=== PATIENT | male | born 1970 | race Two or more races ===

== ENCOUNTER 2019-03-02 15:55 | Emergency (ER) | payer SELFPAY ==
--- NOTE | 2019-03-02 17:01 | EDM.PDOC ---
ED HPI GENERAL MEDICAL PROBLEM - General Chief Complaint: Abdominal Pain Stated Complaint: ABDOMINAL PAIN Time Seen by Provider: 03/02/19 16:36 Source of Information: Reports: Patient, Family History Limitations: Reports: No Limitations - History of Present Illness INITIAL COMMENTS - FREE TEXT/NARRATIVE: patient is 48-year-old male who presents with complaints of bilateral lower abdominal pain. He states he's had this pain intermittently over the last year however symptoms are worse today. He states the pain occurs frequently after he eats and he does have episodes of diarrhea and constipation. He states he did have some diarrhea today. Denies any nausea or vomiting. He also states that he does have intermittent swelling in his testicles. He first noticed this symptom about 6 months ago. States the testicles are not swollen at this time. He denies any history of GI problems. He is has his appendix and gallbladder. He refused IV insertion during the triage process and is apprehensive to lab work. Abdominal Pain Score (Numeric/FACES): 6 - Related Data Allergies Allergy/AdvReac Type Severity Reaction Status Date / Time No Known Allergies Allergy Verified 03/02/19 16:32 Home Meds: Home Meds Dicyclomine [Bentyl] 20 mg PO Q6H PRN #10 tablet 03/02/19 [Rx] ED ROS GENERAL - Review of Systems Review Of Systems: See Below Constitutional: Reports: No Symptoms. Denies: Fever, Chills, Decreased Appetite HEENT: Reports: No Symptoms Respiratory: Reports: No Symptoms Cardiovascular: Reports: No Symptoms Endocrine: Reports: No Symptoms GI/Abdominal: Reports: Abdominal Pain, Constipation, Diarrhea, Nausea. Denies: Black Stool, Bloody Stool, Vomiting : Reports: No Symptoms. Denies: Dysuria, Flank Pain, Frequency Musculoskeletal: Reports: No Symptoms Skin: Reports: No Symptoms Neurological: Reports: No Symptoms Psychiatric: Reports: No Symptoms Hematologic/Lymphatic: Reports: No Symptoms Immunologic: Reports: No Symptoms ED EXAM, GI/ABD - Physical Exam Exam: See Below Exam Limited By: No Limitations General Appearance: Alert, WD/WN, Mild Distress Head: Atraumatic, Normocephalic Respiratory/Chest: No Respiratory Distress, Lungs Clear, Normal Breath Sounds, No Accessory Muscle Use, Chest Non-Tender Cardiovascular: Normal Peripheral Pulses, Regular Rate, Rhythm, No Edema, No Murmur GI/Abdominal Exam: Normal Bowel Sounds, Soft, Tender (generalized throughout. Worse to bilateral sides of the umbilicus.) (Male) Exam: No Hernia, Normal Inspection. No: Scrotal Swelling, Scrotum Tenderness (L), Scrotum Tenderness (R) Neurological: Alert, Oriented, Normal Cognition Psychiatric: Normal Affect, Normal Mood Skin Exam: Warm, Dry, Intact, Normal Color, No Rash Lymphatic: No Adenopathy Course - Vital Signs Last Recorded V/S: Last Vital Signs Temp 98.3 F 03/02/19 16:33 Pulse 87 03/02/19 16:33 Resp 18 03/02/19 16:33 BP 155/95 H 03/02/19 16:33 Pulse Ox 98 03/02/19 16:33 - Orders/Labs/Meds Orders: Active Orders 24 hr Category Date Time Status Abdomen 2V AP Flat Upright [CR] Stat Exams 03/02/19 16:53 Taken Dicyclomine [Bentyl] Med 03/02/19 18:25 Once 20 mg PO ONETIME ONE Medication Orders Dicyclomine HCl (Bentyl) 20 mg PO ONETIME ONE Stop: 03/02/19 18:26 Labs: Laboratory Tests 03/02/19 Range/Units 17:15 Urine Color Yellow (Yellow) Urine Appearance Clear (Clear) Urine pH 7.0 (5.0-8.0) Ur Specific [place] 1.025 (1.005-1.030) Urine Protein Negative (Negative) Urine Glucose (UA) Negative (Negative) Urine Ketones Trace H (Negative) Urine Occult Blood Negative (Negative) Urine Nitrite Negative (Negative) Urine Bilirubin Negative (Negative) Urine Urobilinogen 1.0 (0.2-1.0) Ur Leukocyte Esterase Negative (Negative) Urine RBC 0-5 (0-5) /hpf Urine WBC 0-5 (0-5) /hpf Ur Squamous Epith Cells Not seen (0-5) /hpf Urine Bacteria Few (FEW) /hpf Urine Mucus Few (FEW) /hpf Meds: Medications Generic Name Dose Route Start Last Admin Trade Name Freq PRN Reason Stop Dose Admin Dicyclomine HCl 20 mg 03/02/19 18:25 Bentyl PO 03/02/19 18:26 ONETIME ONE - Re-Assessments/Exams Free Text/Narrative Re-Assessment/Exam: Patient is a 48-year-old male who presents with complaints of bilateral lower abdominal pain. He states this has been occurring off and on for the last year after eating. He states that 6 months ago he noticed that his does have intermittent swelling in his scrotum. He states he does not feel that his scrotum is swollen at this time. Patient refused IV insertion and is apprehensive to having lab work done. On assessment he does have generalized tenderness throughout the abdomen. It seems to be worse directly lateral to the umbilicus on the bilateral sides. His scrotum is does not appear to be swollen at this time. There was no tenderness on exam. I will start with that abdomen flat and upright x-ray as well as a urinalysis. There are no findings on either of these exams, we will move onto blood work if the patient allows. 03/02/19 18:25 Patient's x-ray of his abdomen does show a significant amount of stool throughout his colon. Urinalysis is negative for any infection. I did discuss these findings with the patient and his . It is very possible that this stool is was causing his pain and that he has had issues with chronic constipation over the last year. I do feel that there may be an IBS component to this also. I did discuss that unfortunately IBS is a diagnosis of exclusion so he would have to have colonoscopy done to rule out other disease processes. I do not feel an abdomen CT is appropriate at this time as this has been an ongoing issue of the last year, however, I did offer this if they would like further testing done at this time. They would like to attempt of colon cleanse with magnesium citrate to see if that improves his symptoms. I did discuss that if he does not have relief or if any symptoms worsen he should return to the emergency department. Patient is from [place] so he may also seek care there as needed if he is no longer in the [facility]. I did order Bentyl 20 mg to be given now. 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 They would like to just buy the magnesium citrate in the pharmacy as opposed to get it from here. Discharge instructions as noted. Departure - Departure Time of Disposition: 18:30 Disposition: Home, Self-Care 01 Condition: Fair Clinical Impression: Abdominal pain Qualifiers: Abdominal location: generalized Qualified Code(s): R10.84 - Generalized abdominal pain - Discharge Information *PRESCRIPTION DRUG MONITORING PROGRAM REVIEWED*: No *COPY OF PRESCRIPTION DRUG MONITORING REPORT IN PATIENT [place]: No Prescriptions: Dicyclomine [Bentyl] 20 mg PO Q6H PRN #10 tablet PRN Reason: abdominal cramping Referrals: PCP,None [Primary Care Provider] - Forms: ED Department Discharge Additional Instructions: You were seen in the emergency department nick with complaints of abdominal pain that she had intermittently over the last year. An x-ray of her abdomen did show significant amount of stool present in the colon. As we discussed, your pain and may likely be related to constipation. He did receive Bentyl in the emergency department for abdominal cramping. A prescription for this has also been sent to an [place] pharmacy in [facility]. 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 You may drink the entire bottle at one time or you may choose to drink half now and then wait a few hours to see if you have results. After this we do recommend that she take a daily stool softener to stay regular. I do recommend that you establish care with a primary care provider as I feel there may be a component of IBS to your symptoms. This would however require a colonoscopy to be done to rule out other disease processes. If he should fail to have relief from the bowel cleanse or if you experience any new or worsening symptoms please do not hesitate return to the emergency department. Sepsis Event Note - Evaluation Sepsis Screening Result: No Definite Risk - Focused Exam Vital Signs: Vital Signs Temp Pulse Resp BP Pulse Ox 03/02/19 16:33 98.3 F 87 18 155/95 H 98 Date Exam was Performed: 03/02/19 Time Exam was Performed: 18:25 - My Orders Last 24 Hours: My Active Orders 03/02/19 16:53 Abdomen 2V AP Flat Upright [CR] Stat 03/02/19 18:25 Dicyclomine [Bentyl] 20 mg PO ONETIME ONE - Assessment/Plan Last 24 Hours: My Active Orders 03/02/19 16:53 Abdomen 2V AP Flat Upright [CR] Stat 03/02/19 18:25 Dicyclomine [Bentyl] 20 mg PO ONETIME ONE
[2019-03-02] MEDS ORDERED: Dicyclomine 10 MG Cap PO ONE (18:25)
--- NOTE | 2019-03-04 10:50 | CR ---
Abdomen: Supine and upright views of the abdomen were obtained. Comparison: No prior abdominal x-ray. Slight deformity is noted within the right iliac wing which is well corticated and is felt to be old. Joint space narrowing is noted within the left hip. Calcifications are identified within the left pelvis which is believed to represent phleboliths. Bowel gas pattern is normal. No free air is identified. Impression: 1. Findings as noted above believed to be nonacute. Diagnostic code #2 This report was dictated in [place] Standard Time
== END 2019-03-02 18:50 | disposition home or self-care (01) ==
LOC: JD.ED 15:55
DX: R10.84 Generalized abdominal pain (principal)
CPT/HCPCS: 74019; 81001; 99284; A9270; 99283